=== PATIENT | female | born 1965 | race Caucasian/White ===

== ENCOUNTER → 2023-07-21 | Outpatient (REF) | payer BC ==
[~2023-07-21] MED LIST: AEROCHAMBER MV1 EACH MC; GUAIFEN-CODEIN118 ML PO; LISINOPRIL AND1 TA1 PO; MORGIDOX 1X100100 MG PO; PREDNISONE20 M1 PO; PROAIR HFA0.09 MG/AC IH
== END ==
LOC: RAD 12:06
DX: R06.09 Other forms of dyspnea (principal)

== ENCOUNTER → 2023-10-21 | Outpatient (CLI) | payer BC ==
[~2023-10-21] MED LIST changes: +CYCLOBENZAPRINE10 M1 PO; +VALIUM5 M1
[2023-12-12 11:20] LABS: CREATININE OTHER SOURCE 197.1
[2023-12-12 11:54] LABS: CALCIUM 9.8 mg/dL (8.3-10.5)
== END ==
LOC: LAB 12:01 → EDSTATUS 19:18
PROVIDERS: Family Medicine
DX: Z13.1 Encounter for screening for diabetes mellitus (principal); Z13.220 Encounter for screening for lipoid disorders; I10 Essential (primary) hypertension

== ENCOUNTER → 2023-11-10 | Outpatient (CLI) | payer BC | LOC: MAMMO 11:23 | DX: Z12.31 Encounter for screening mammogram for malignant neoplasm of breast (principal) ==

== ENCOUNTER 2024-04-30 16:37 | Emergency (ER) | payer BC ==
[~2024-04-30] VITALS: Ht 162.6 cm; Wt 95.2 kg
[2024-04-30] MEDS ORDERED: TRAMADOL 50 MG TAB PO (16:43)
[2024-04-30 17:06] LABS: BASO # 0.04 K/mm3 (0.02-0.10); EOS # 0.22 K/mm3 (0.04-0.40); EOS % 2.8 % (1.0-5.0); HEMATOCRIT 47.3 % (37.0-47.0); HEMOGLOBIN 15.7 g/dL (12.5-16.0); LYMPH# 1.83 K/mm3 (1.50-4.00); MEAN CELL VOLUME 94 fl (78-100); MEAN CORPUSCULAR HEMOGLOBIN 31 pg (27-31); MEAN CORPUSCULAR HGB CONC 33 g/dL (33-37); MEAN PLATELET VOLUME 9.5 fl (7.4-10.4); MONO # 0.47 K/mm3 (0.20-0.80); NEU # 5.42 K/mm3 (1.40-6.50); PLATELET COUNT 231 K/mm3 (130-400); RED BLOOD COUNT 5.01 M/mm3 (4.10-5.30); RED CELL DISTRIBUTION WIDTH 12.9 % (11.5-14.5)
[2024-04-30 17:11] LABS: SODIUM 139 mmol/L (136-145)
[2024-04-30 17:12] LABS: ALBUMIN 4.5 g/dL (3.5-5.0); CALCIUM 10.2 mg/dL (8.3-10.5)
[2024-04-30 17:14] LABS: TOTAL PROTEIN 7.6 g/dL (6.4-8.3)
[2024-04-30 17:15] LABS: CARBON DIOXIDE 26 mmol/L (22-29); GLUCOSE 107 mg/dL (65-105); TOTAL BILIRUBIN 0.5 mg/dL (0.2-1.2)
[2024-04-30 17:19] LABS: AST-SGOT 36 U/L (5-34); D-DIMER 0.44 mg/L FEU (0.15-0.50)
[2024-04-30 17:22] LABS: ALT/SGPT 40 U/L (0-55)
[2024-04-30 17:33] LABS: TROPONIN-I < 0.030 ng/mL (0.00-0.033)
[2024-04-30 20:36] VITALS: BP 126/63
== END 2024-04-30 20:38 | disposition home or self-care (01) ==
LOC: ED 16:37
PROVIDERS: Physician Assistant
DX: R07.2 Precordial pain (principal); F17.210 Nicotine dependence, cigarettes, uncomplicated; Z86.74 Personal history of sudden cardiac arrest

== ENCOUNTER 2024-05-24 01:45 | Emergency (ER) | payer BC ==
[~2024-05-24 01:45] MED LIST changes: +TRAMADOL 50 MG TAB PO
[2024-05-24 02:42] LABS: BASO # 0.04 K/mm3 (0.02-0.10); EOS % 2.9 % (1.0-5.0); HEMATOCRIT 40.2 % (37.0-47.0); HEMOGLOBIN 14.7 g/dL (12.5-16.0); LYMPH# 1.72 K/mm3 (1.50-4.00); MEAN CELL VOLUME 95 fl (78-100); MEAN CORPUSCULAR HEMOGLOBIN 35 pg (27-31); MEAN CORPUSCULAR HGB CONC 37 g/dL (33-37); MEAN PLATELET VOLUME 10.8 fl (7.4-10.4); MONO # 0.48 K/mm3 (0.20-0.80); PLATELET COUNT 210 K/mm3 (130-400); RED BLOOD COUNT 4.24 M/mm3 (4.10-5.30)
[2024-05-24 03:10] LABS: CALCIUM 9.5 mg/dL (8.3-10.5)
[2024-05-24 03:12] LABS: GLUCOSE 113 mg/dL (65-105); TOTAL PROTEIN 6.7 g/dL (6.4-8.3)
[2024-05-24 03:13] LABS: CARBON DIOXIDE 26 mmol/L (22-29); TOTAL BILIRUBIN 0.4 mg/dL (0.2-1.2)
[2024-05-24 03:17] LABS: AST-SGOT 35 U/L (5-34)
[2024-05-24 03:19] LABS: ALT/SGPT 37 U/L (0-55)
[2024-05-24 03:20] LABS: LIPASE 42 U/L (8-78)
[2024-05-24 03:26] LABS: TROPONIN-I < 0.030 ng/mL (0.00-0.033)
[2024-05-24 03:27] LABS: SODIUM 139 mmol/L (136-145)
[2024-05-24 04:03] VITALS: BP 132/62
== END 2024-05-24 04:03 | disposition home or self-care (01) ==
LOC: ED 01:45
PROVIDERS: Nurse Practitioner Family
DX: R07.9 Chest pain, unspecified (principal); E87.6 Hypokalemia; R10.812 Left upper quadrant abdominal tenderness